=== PATIENT | female | born 1955 | race African-American/Black ===

== ENCOUNTER 2021-04-04 09:37 | Inpatient (IN) | payer OTHER ==
[2021-04-04 11:41] VITALS: BMI 24.8
[2021-04-04] MEDS ORDERED: IBUPROFEN 400 MG TABLET (FP) PO PRN (12:56)
[2021-04-04] MEDS ORDERED: MENTHOL/PHENOL 1 EACH UD MM PRN (12:56)
[2021-04-04] MEDS ORDERED: BISMUTH SUBSALICYLATE 524 MG/30 ML PO PRN (12:56)
[2021-04-04] MEDS ORDERED: NICOTINE 10 MG CARTRIDGE (INHALER) IH PRN (12:56)
[2021-04-04] MEDS ORDERED: MAG HYDROX/AL HYDROX/SIMETH 30 ML UNIT-DOSE CUP PO PRN (12:56)
[2021-04-04] MEDS ORDERED: ONDANSETRON *ODT* 4 MG TABLET SL PRN (12:56)
[2021-04-04] MEDS ORDERED: MAGNESIUM HYDROX 2400MG/30ML ORAL SUSPENSION 30 ML CUP PO PRN (12:56)
[2021-04-04] MEDS ORDERED: MAGNESIUM CITRATE 300 ML BOTTLE PO PRN (12:56)
[2021-04-04] MEDS ORDERED: ACETAMINOPHEN 325 MG TABLET (FP) PO PRN ×2 (12:56)
[2021-04-04] MEDS ORDERED: ACETAMINOPHEN 650 MG PO PRN (12:59)
[2021-04-04] MEDS ORDERED: PATIENT'S OWN MEDICATION (NON-FORMULARY) (Multivitamin [Multivitamins] 1 EACH Tablet) PO SCH (13:00)
[2021-04-04] MEDS: PANTOPRAZOLE 40 MG TABLET PO SCH (13:46)
[2021-04-04] MEDS: hydrOXYzine PAMOATE 25 MG CAPSULE (FP) PO SCH ×3 (13:46→22:41)
[2021-04-04] MEDS: METHOCARBAMOL 500 MG TABLET PO PRN ×2 (13:46→22:42)
[2021-04-04] MEDS: diazePAM 5 MG TABLET PO PRN (13:46)
[2021-04-04] MEDS: PRENATAL VITAMINS W/ FOLIC ACID TABLET (FP) PO SCH (13:48)
[2021-04-04] MEDS: metoPROLOL SUCCINATE 25 MG TAB.SR.24H (FP) PO SCH (14:01)
[2021-04-04] MEDS: diazePAM 5 MG TABLET PO SCH ×2 (17:35→22:41)
[2021-04-04] MEDS: THIAMINE HCL 100 MG TABLET (FP) PO SCH (22:41)
[2021-04-04] MEDS: MELATONIN 5 MG TABLETS PO SCH (22:47)
[2021-04-05] MEDS: diazePAM 5 MG TABLET PO SCH ×4 (06:13→22:29)
[2021-04-05] MEDS: hydrOXYzine PAMOATE 25 MG CAPSULE (FP) PO SCH ×5 (06:13→22:28)
[2021-04-05] MEDS ORDERED: ERGOCALCIFEROL (VIT D2) 50,000 UNIT (1.25 MG) CAPSULE PO SCH (10:00)
[2021-04-05] MEDS: metoPROLOL SUCCINATE 25 MG TAB.SR.24H (FP) PO SCH (10:32)
[2021-04-05] MEDS: PANTOPRAZOLE 40 MG TABLET PO SCH (10:32)
[2021-04-05] MEDS: PRENATAL VITAMINS W/ FOLIC ACID TABLET (FP) PO SCH (10:32)
[2021-04-05] MEDS: METHOCARBAMOL 500 MG TABLET PO PRN (10:35)
[2021-04-05 11:52] LABS: HEMATOCRIT 30.7 % (32.4-45.2); HEMOGLOBIN 10.6 GM/dL (10.7-15.3); MCH 35.6 pg (25.7-33.7); MCHC 34.6 g/dl (32.0-36.0); MEAN CELL VOLUME 102.9 fl (80-96); MEAN PLT VOLUME 10.5 fl (7.5-11.1); PLATELET COUNT 42 10^3/uL (134-434); RBC 2.98 M/mm3 (3.60-5.2); RDW 14.7 % (11.6-15.6); WHITE BLOOD COUNT 2.4 K/mm3 (4.0-10.0)
[2021-04-05 12:08] LABS: CALCIUM 8.3 mg/dL (8.5-10.1)
[2021-04-05 12:09] LABS: ALBUMIN 2.5 g/dl (3.4-5.0); BLOOD UREA NITROGEN 23.9 mg/dL (7-18)
[2021-04-05 12:12] LABS: CREATININE 1.6 mg/dL (0.55-1.3)
[2021-04-05 12:13] LABS: TOT PROT 7.5 g/dl (6.4-8.2)
[2021-04-05 12:16] LABS: BILIRUBIN,TOTAL 2.1 mg/dL (0.2-1)
[2021-04-05] MEDS ORDERED: POTASSIUM CHLORIDE TABS 20 MEQ TABLET.ER (FP) PO ONE (16:58)
[2021-04-05] MEDS: THIAMINE HCL 100 MG TABLET (FP) PO SCH (22:28)
[2021-04-05] MEDS: MELATONIN 5 MG TABLETS PO SCH (22:28)
[2021-04-06] MEDS: diazePAM 5 MG TABLET PO SCH ×3 (05:48→22:04)
[2021-04-06] MEDS: hydrOXYzine PAMOATE 25 MG CAPSULE (FP) PO SCH ×5 (05:48→22:03)
[2021-04-06] MEDS: PRENATAL VITAMINS W/ FOLIC ACID TABLET (FP) PO SCH (10:46)
[2021-04-06] MEDS: metoPROLOL SUCCINATE 25 MG TAB.SR.24H (FP) PO SCH (10:46)
[2021-04-06] MEDS: PANTOPRAZOLE 40 MG TABLET PO SCH (10:46)
[2021-04-06] MEDS: diazePAM 5 MG TABLET PO PRN (10:46)
[2021-04-06] MEDS: METHOCARBAMOL 500 MG TABLET PO PRN (14:51)
[2021-04-06] MEDS ORDERED: LISINOPRIL 5 MG TABLET PO ONE (15:00)
[2021-04-06] MEDS ORDERED: POTASSIUM CHLORIDE ORAL LIQUID 20 MEQ/15 ML PO ONE (15:00)
[2021-04-06] MEDS ORDERED: metoPROLOL SUCCINATE 25 MG TAB.SR.24H (FP) PO SCH (22:00)
[2021-04-06] MEDS: THIAMINE HCL 100 MG TABLET (FP) PO SCH (22:03)
[2021-04-06] MEDS: MELATONIN 5 MG TABLETS PO SCH (22:04)
[2021-04-07] MEDS: diazePAM 5 MG TABLET PO SCH ×2 (06:46→17:29)
[2021-04-07] MEDS: hydrOXYzine PAMOATE 25 MG CAPSULE (FP) PO SCH ×5 (06:46→22:10)
[2021-04-07] MEDS: PRENATAL VITAMINS W/ FOLIC ACID TABLET (FP) PO SCH (10:52)
[2021-04-07] MEDS: PANTOPRAZOLE 40 MG TABLET PO SCH (10:52)
[2021-04-07 14:57] LABS: BASO % 0.3 % (0-2.0); EOS % 1.8 % (0-4.5); HEMATOCRIT 32.4 % (32.4-45.2); HEMOGLOBIN 11.2 GM/dL (10.7-15.3); LYMPH % 52.7 % (8-40); MCHC 34.7 g/dl (32.0-36.0); MEAN CELL VOLUME 103.6 fl (80-96); MEAN PLT VOLUME 10.3 fl (7.5-11.1); MONO % 8.7 % (3.8-10.2); NEUT % 36.5 % (42.8-82.8); PLATELET COUNT 40 10^3/uL (134-434); RBC 3.13 M/mm3 (3.60-5.2); RDW 14.8 % (11.6-15.6); WHITE BLOOD COUNT 2.5 K/mm3 (4.0-10.0)
[2021-04-07 15:03] LABS: ALBUMIN 2.4 g/dl (3.4-5.0)
[2021-04-07 15:04] LABS: BILIRUBIN,TOTAL 1.4 mg/dL (0.2-1); BLOOD UREA NITROGEN 17.3 mg/dL (7-18)
[2021-04-07 15:06] LABS: BILIRUBIN,DIRECT 0.7 mg/dL (0.0-0.2); CREATININE 1.2 mg/dL (0.55-1.3)
[2021-04-07 15:08] LABS: TOT PROT 7.8 g/dl (6.4-8.2)
[2021-04-07] MEDS: THIAMINE HCL 100 MG TABLET (FP) PO SCH (22:10)
[2021-04-07] MEDS: METHOCARBAMOL 500 MG TABLET PO PRN (22:10)
[2021-04-07] MEDS: MELATONIN 5 MG TABLETS PO SCH (22:10)
[2021-04-08] MEDS ORDERED: diazePAM 5 MG TABLET PO ONE (06:00)
[2021-04-08 06:26] VITALS: BP 138/74; PULSE 66; TEMP 96.8
[2021-04-08] MEDS: hydrOXYzine PAMOATE 25 MG CAPSULE (FP) PO SCH (06:56)
== END 2021-04-08 09:16 | disposition home or self-care (01) | DRG 897 ==
LOC: YASAS 09:37 → Y6N 12:32
PROVIDERS: ADMIT Allergy & Immunology; ATTEND Allergy & Immunology
PROC: HZ2ZZZZ Detoxification Services for Substance Abuse Treatment (ICD-10-PCS; principal; 2021-04-04)
DX: F10.230 Alcohol dependence with withdrawal, uncomplicated (principal); I10 Essential (primary) hypertension; I49.9 Cardiac arrhythmia, unspecified; D72.819 Decreased white blood cell count, unspecified; R79.89 Other specified abnormal findings of blood chemistry; R74.01 Elevation of levels of liver transaminase levels; Z79.01 Long term (current) use of anticoagulants; Z86.79 Personal history of other diseases of the circulatory system; Z91.013 Allergy to seafood; Z88.0 Allergy status to penicillin; Z91.018 Allergy to other foods
CPT/HCPCS: 36415; 80053; 80076; 82565; 84132; 84520; 85025; 85027; 86780; C9803; U0003; U0005